=== PATIENT | female | born 1960 | race Caucasian/White ===

== ENCOUNTER 2021-01-31 16:47 | Emergency (ER) | payer BC, SELFPAY ==
[2021-01-31 17:02] VITALS: BP 128/81; PULSE 63; RESP 16; TEMP 36.8; O2SAT 98
[2021-01-31 17:13] VITALS: BP 128/81; PULSE 63; RESP 16; TEMP 36.8; O2SAT 98
--- NOTE | 2021-01-31 17:15 | ED.URI ---
HPI - URI/Sore Throat General Chief Complaint: Upper Respiratory Infection Stated Complaint: Cough/Congestion Time Seen by Provider: 01/31/21 16:49 Source: patient Mode of arrival: ambulatory History of Present Illness HPI Narrative: 6-year-old female presents to [facility] with complaints of runny nose, nasal congestion and dry cough for the past 3 days. 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 Patient has received her Covid vaccine. Patient not tried taking any [id number] medications for her symptoms. Patient denies shortness of breath, wheezing, fever, bites, chills, nausea, vomiting or diarrhea MD elicited complaint: cough, rhinorrhea and nasal congestion Able to tolerate fluids by mouth: Yes Relieving factors: nothing Context: sick contacts Treatments prior to arrival: none Related Data Home Medications Medication Instructions Recorded Confirmed clonazepam 0.5 mg PO HS 01/31/21 01/31/21 gabapentin 300 mg PO BID 01/31/21 01/31/21 levetiracetam 500 mg PO BID 01/31/21 01/31/21 levothyroxine 25 mcg PO DAILY 01/31/21 01/31/21 mecobalamin (vitamin B12) 1,000 mcg SUBLINGUAL DAILY 01/31/21 01/31/21 rotigotine [Neupro] 2 mg TRANSDERMAL DAILY 01/31/21 01/31/21 Allergies Allergy/AdvReac Type Severity Reaction Status Date / Time codeine Allergy Hallucinati Verified 01/31/21 17:11 ng Review of Systems Constitutional: Constitutional: Denies chills, Denies fever(s) and Denies weakness ENT: Denies epistaxis and Reports nasal congestion Cardiovascular: Cardiovascular: Denies chest pain, Denies rapid heart rate, Denies radiating jaw, neck or arm pain and Denies slow heart rate Respiratory: Respiratory: Denies chest congestion, Reports cough, Denies dyspnea and Denies wheezing Gastrointestinal: Gastrointestinal: Denies abdominal pain, Denies diarrhea, Denies nausea and Denies vomiting Integumentary/Breasts: Skin/Breast: Denies rash PMFSH Surgical History Surgical History (Updated 01/31/21 @ 17:17 by Holley Kellogg APRN) Previous back surgery Total knee replacement status Family History Family History (Updated 01/31/21 @ 17:17 by Holley Kellogg APRN) Father Malignant neoplasm of prostate Social History Social History (Updated 01/31/21 @ 17:18 by Holley Kellogg APRN) Smoking status: Light tobacco smoker Tobacco type: cigars Comments At time of signature, I agree with nursing past medical, surgical, social and family history. There is no relevant family history pertinent to the presenting complaint. Exam Const: General: healthy appearing and no acute distress Orientation/consciousness: patient oriented x3 HENMT: Ears: external ears normal and TM's normal bilaterally General nose exam: Normal external nose present and Normal nares present Face and sinus: normal facial exam Mouth: Yes moist mucous membranes Throat: uvula midline Neck: Neck: normal visual inspection Resp: Effort & Inspection: normal respiratory effort Auscultation: clear to auscultation bilaterally Cardio: Rate: regular rate Rhythm: regular rhythm Skin: General skin exam: normal color Rashes: no rashes Neuro: General: patient oriented x3 and moves all extremities Course Vital Signs Vital signs: Vital Signs Temperature 36.8 C 01/31/21 17:02 Pulse Rate 63 01/31/21 17:02 Respiratory Rate 16 01/31/21 17:02 Blood Pressure 128/81 01/31/21 17:02 Pulse Oximetry 98 01/31/21 17:02 Temperature 36.8 C 01/31/21 17:13 Pulse Rate 63 01/31/21 17:13 Respiratory Rate 16 01/31/21 17:13 Blood Pressure 128/81 01/31/21 17:13 Pulse Oximetry 98 01/31/21 17:13 MDM - URI/Sore Throat Differential Diagnosis Differential diagnosis: Likely otitis media, sinusitis and viral infection Lab Data Labs: (-) rapid COVID Critical Care Time Critical Care Time Critical Care Time: No Discharge Plan Discharge Clinical Impression: Upper respiratory
== END 2021-01-31 17:51 | disposition home or self-care (01) ==
PROVIDERS: Emergency Provider Nurse Practitioner Family
DX: J06.9 Acute upper respiratory infection, unspecified (principal); F17.290 Nicotine dependence, other tobacco product, uncomplicated; Z20.822 Contact with and (suspected) exposure to COVID-19
CPT/HCPCS: 87426; 99213; C9803; G0463

== ENCOUNTER 2021-04-10 17:43 | Emergency (ER) | payer BC, SELFPAY ==
[2021-04-10 17:48] VITALS: BP 124/78; PULSE 65; RESP 20; TEMP 36.9; O2SAT 94
--- NOTE | 2021-04-10 17:52 | ED.WOUNDLAC ---
HPI - Wound/Laceration General Chief Complaint: Wound/Laceration Stated Complaint: Laceration to Thumb Time Seen by Provider: 04/10/21 18:07 Source: patient and RN notes reviewed Mode of arrival: ambulatory Limitations: no limitations History of Present Illness HPI narrative: 60-year-old female presents with concern for laceration to the palmar aspect of the distal left first digit. She reports approximately 4:00 today she cut the finger on an old knife. She denies any decreased strength, sensation, range of motion. Related Data Home Medications Medication Instructions Recorded Confirmed clonazepam 0.5 mg PO HS 01/31/21 01/31/21 gabapentin 300 mg PO BID 01/31/21 01/31/21 levetiracetam 500 mg PO BID 01/31/21 01/31/21 levothyroxine 25 mcg PO DAILY 01/31/21 01/31/21 mecobalamin (vitamin B12) 1,000 mcg SUBLINGUAL DAILY 01/31/21 01/31/21 rotigotine [Neupro] 2 mg TRANSDERMAL DAILY 01/31/21 01/31/21 Allergies Allergy/AdvReac Type Severity Reaction Status Date / Time codeine Allergy Hallucinati Verified 04/10/21 18:02 ng Review of Systems Review of Systems: CONSTITUTIONAL: Denies malaise, chills, sweats, or fever. SKIN: Reports laceration to the distal palmar aspect of the left first digit MUSCULOSKELETAL: Denies muscle skeletal pain NEUROLOGIC: Denies numbness, weakness All systems reviewed & are unremarkable except as noted in HPI and below PMFSH Surgical History Surgical History (Updated 01/31/21 @ 17:17 by Holley Kellogg APRN) Previous back surgery Total knee replacement status Family History Family History (Updated 01/31/21 @ 17:17 by Holley Kellogg APRN) Father Malignant neoplasm of prostate Social History Social History (Updated 01/31/21 @ 17:18 by Holley Kellogg APRN) Smoking status: Light tobacco smoker Tobacco type: cigars Comments At time of signature, agree with nursing past medical, surgical, social and family history. There is no relevant family history pertinent to the presenting complaint Exam Narrative: GENERAL: Well-appearing, well-nourished, and in no acute distress. HEAD: Normocephalic EYES: PERRLA, conjunctivae clear NECK: Supple. CHEST: Speaks in full sentences. No respiratory distress. HEART: Regular rate and rhythm. Normal and equal peripheral pulses. EXTREMITIES: First digit of left hand has normal strength and sensation. 5/5 strength with digit flexion, extension. Range of motion normal. No clubbing, cyanosis, or edema noted. No tenderness. Distal capillary refill less than 3 seconds. SKIN: Warn, dry, intact, pink. 1 cm superficial linear laceration noted to the palmar aspect of the first digit of the left hand NEURO: Alert and oriented x3. PSYCH: Normal mood and affect Extrem: Hand/finger images: 1. Superficial linear laceration Course Course Emergency Course: Discussed statin sent with the patient, she does not think she has had a tetanus vaccination last 10 years, patient chooses to not pursue tetanus vaccination at this time. Patient is aware of diagnosis, understands and agrees to treatment plan. Anticipatory guidance given. Patient agrees to follow-up as directed and is aware of reasons to seek care at the emergency department. Portions of this record may have been created with voice recognition software Level of Care: Express Care Visit Vital Signs Vital signs: Reviewed. MDM - Wound/Laceration MDM Narrative Medical decision making narrative: Wound explored for foreign body and copious irrigation provided with no evidence of FB. Discussed the potential of retained foreign body with the patient and signs/symptoms that should prompt the patient to immediately go to the ED for reevaluation. The laceration was identified to be 1 cm in length and located at the palmar aspect of the first digit of the left. The laceration was cleansed with technique care and no debris was noted. The laceration was then irrigated. The wound was explored and no foreign bodies
== END 2021-04-10 18:23 | disposition home or self-care (01) ==
PROVIDERS: Emergency Provider Nurse Practitioner; PCP Family Medicine
DX: S61.212A Laceration without foreign body of right middle finger without damage to nail, initial encounter (principal); W26.0XXA Contact with knife, initial encounter; F17.290 Nicotine dependence, other tobacco product, uncomplicated; Z96.659 Presence of unspecified artificial knee joint
CPT/HCPCS: 12001; 99212; G0463